=== PATIENT | male | born 1945 | race Caucasian/White ===

== ENCOUNTER 2016-11-05 10:01 | Outpatient (CLI) | payer MEDICARE | END 2016-11-05 10:02 | disposition home or self-care (01) | DX: J43.9 Emphysema, unspecified (principal); R91.8 Other nonspecific abnormal finding of lung field ==

== ENCOUNTER 2016-12-01 13:23 | Outpatient (CLI) | payer MEDICARE | END 2016-12-01 13:24 | disposition home or self-care (01) | DX: I49.9 Cardiac arrhythmia, unspecified (principal) ==

== ENCOUNTER 2016-12-01 14:01 | Inpatient (IN) | payer MEDICARE ==
[2016-12-01] MEDS ORDERED: METOPROLOL 5 MG/5 ML VIAL IVP STA ×2 (14:24→15:09)
[2016-12-01] MEDS ORDERED: ENOXAPARIN 80 MG/0.8 ML SYRINGE SUBQ STA (14:25)
[2016-12-01] MEDS ORDERED: METOPROLOL 5 MG/5 ML VIAL IVP ONE ×2 (14:25→15:09)
[2016-12-01] MEDS ORDERED: ENOXAPARIN 80 MG/0.8 ML SYRINGE SUBQ ONE (14:59)
[2016-12-01] MEDS ORDERED: ACETAMINOPHEN 325 MG TABLET PO PRN (16:08)
[2016-12-01] MEDS ORDERED: ONDANSETRON 4 MG/2 ML VIAL IVP PRN (16:08)
[2016-12-01] MEDS ORDERED: HYDROcod/ACETAM 5/325 MG TABLET PO PRN (16:08)
[2016-12-01] MEDS ORDERED: SODIUM CHLORIDE FLUSH 0.9% 10 ML SYRINGE IVP PRN (16:08)
[2016-12-01] MEDS ORDERED: IPRATROPIUM/ALBUTEROL 3 ML NEB INH PRN (17:11)
[2016-12-01] MEDS: diltiaZEM INJ 125 MG in DEXTROSE 5% 100 ML IV SCH (17:15)
[2016-12-01] MEDS: SODIUM CHLORIDE 0.9% 1,000 ML IV SCH (17:23)
[2016-12-01] MEDS ORDERED: FUROSEMIDE 40 MG/4 ML VIAL IVP SCH (21:12)
[2016-12-01] MEDS: SODIUM CHLORIDE FLUSH 0.9% 10 ML SYRINGE IVP SCH (21:40)
[2016-12-02] MEDS: SODIUM CHLORIDE 0.9% 1,000 ML IV SCH ×2 (03:15→13:15)
[2016-12-02] MEDS: diltiaZEM INJ 125 MG in DEXTROSE 5% 100 ML IV SCH (04:12)
[2016-12-02] MEDS: SODIUM CHLORIDE FLUSH 0.9% 10 ML SYRINGE IVP SCH ×2 (05:49→13:15)
[2016-12-02] MEDS ORDERED: ASPIRIN CHEW 81 MG TABLET PO SCH (09:00)
[2016-12-02] MEDS ORDERED: HEPARIN 5,000 UNIT/ML VIAL SUBQ SCH (09:00)
[2016-12-02] MEDS ORDERED: LISINOPRIL 5 MG TABLET PO SCH (09:00)
[2016-12-02] MEDS ORDERED: METOPROLOL TARTRATE 50 MG TABLET PO SCH (10:00)
[2016-12-02] MEDS ORDERED: SODIUM CHLORIDE INHALATION 3 ML NEB INH PRN (10:36)
[2016-12-02] MEDS ORDERED: LEVALBUTEROL 1.25 MG INH ONE (11:55)
[2016-12-02] MEDS ORDERED: IPRATROPIUM 0.2 MG/ML NEB INH ONE (11:55)
[2016-12-02] MEDS ORDERED: diltiaZEM CD 120 MG CAPSULE PO SCH (12:00)
[2016-12-02] MEDS: IPRATROPIUM 0.2 MG/ML NEB INH SCH ×2 (14:23→16:20)
[2016-12-02] MEDS: LEVALBUTEROL 1.25 MG INH SCH ×2 (14:23→16:20)
== END 2016-12-02 17:15 | disposition home or self-care (01) | DRG 309 ==
DX: I48.91 Unspecified atrial fibrillation (principal); N17.9 Acute kidney failure, unspecified; F17.200 Nicotine dependence, unspecified, uncomplicated; Z86.718 Personal history of other venous thrombosis and embolism; N18.4 Chronic kidney disease, stage 4 (severe); J44.9 Chronic obstructive pulmonary disease, unspecified; E87.5 Hyperkalemia; I51.7 Cardiomegaly; F32.9 Major depressive disorder, single episode, unspecified; Z72.0 Tobacco use; I49.9 Cardiac arrhythmia, unspecified

== ENCOUNTER 2016-12-30 10:48 | Outpatient (CLI) | payer MEDICARE | END 2016-12-30 10:49 | disposition home or self-care (01) | LOC: LAB.F 10:48 | PROVIDERS: ATTEND Nurse Practitioner Family | DX: I48.91 Unspecified atrial fibrillation (principal) | CPT/HCPCS: 36415; 85610 ==

== ENCOUNTER 2017-01-02 09:40 | Outpatient (CLI) | payer MEDICARE | END 2017-01-02 09:41 | disposition home or self-care (01) | LOC: LAB.F 09:40 | PROVIDERS: ATTEND Nurse Practitioner Family | DX: I48.91 Unspecified atrial fibrillation (principal) | CPT/HCPCS: 85610 ==

== ENCOUNTER 2017-01-05 12:02 | Outpatient (CLI) | payer MEDICARE | END 2017-01-05 23:59 | disposition home or self-care (01) | LOC: LAB.S 12:02 | PROVIDERS: ATTEND Nurse Practitioner Family | DX: I48.91 Unspecified atrial fibrillation (principal) | CPT/HCPCS: 85610 ==

== ENCOUNTER 2017-01-08 13:13 | Outpatient (CLI) | payer MEDICARE | END 2017-01-08 13:14 | disposition home or self-care (01) | LOC: LAB.F 13:13 | PROVIDERS: ATTEND Nurse Practitioner Family | DX: I48.91 Unspecified atrial fibrillation (principal) | CPT/HCPCS: 85610 ==

== ENCOUNTER 2017-01-12 14:14 | Outpatient (CLI) | payer MEDICARE | END 2017-01-12 23:59 | disposition home or self-care (01) | LOC: LAB.F 14:14 | PROVIDERS: ATTEND Nurse Practitioner Family | DX: I48.91 Unspecified atrial fibrillation (principal) | CPT/HCPCS: 85610 ==

== ENCOUNTER 2017-01-15 13:46 | Outpatient (CLI) | payer MEDICARE | END 2017-01-15 13:47 | disposition home or self-care (01) | LOC: LAB.F 13:46 | PROVIDERS: ATTEND Nurse Practitioner Family | DX: I48.91 Unspecified atrial fibrillation (principal) | CPT/HCPCS: 85610 ==

== ENCOUNTER 2017-01-15 18:13 | Emergency (ER) | payer MEDICARE ==
[2017-01-15] MEDS ORDERED: FUROSEMIDE 40 MG/4 ML VIAL IVP STA (18:29)
[2017-01-15] MEDS ORDERED: METOPROLOL 5 MG/5 ML VIAL IVP STA ×2 (18:29→19:00)
--- NOTE | 2017-01-15 18:35 | ED Physician Documentation ---
History of Present Illness - Stated complaint Stated Complaint: HEART ISSUES - Chief complaint Chief Complaint: Cardiac - History obtained from History obtained from: Patient, Family - Additonal information Additional information: This is a 71-year-old gentleman with history of COPD, chronic kidney disease, and relatively new diagnosis of atrial fibrillation since December 01. He is on anticoagulation. He was sent from the orifice for increasing pedal edema of about 2 weeks duration. Of note, maybe a month ago he stopped his metoprolol, he was taking 50 mg twice a day. When asked why he stopped, he blames his , and his blames him. Otherwise he had a recent COPD exacerbation and is on prednisone. He went to the office today for pedal edema and was referred here because he was in A. fib with RVR. It sounds like he's been in A. fib for the last month and a half. He has not seen a medical planner yet because a stress test was delayed because of previously supratherapeutic INR. His breathing is okay he says. He denies any chest pain. Review of Systems Ten Systems: 10 systems reviewed and negative Constitutional: denies: Fever, Chills Throat: denies: Dental pain / toothache, Sore throat Cardiac: reports: Pedal edema. denies: Chest pain / pressure, Palpitations, Calf pain Respiratory: denies: Dyspnea PD PAST MEDICAL HISTORY - Past Medical History Past Medical History: Yes Cardiovascular: Deep vein thrombosis Respiratory: COPD Psych: Depression - Past Surgical History Past Surgical History: Yes Ortho: Knee replacement - Present Medications Home Medications: Ambulatory Orders Medication Instructions Recorded Confirmed amLODIPine [Norvasc] 5 mg PO DAILY 08/05/13 01/15/17 Ipratropium [Atrovent] 0.5 mg INH QID #30 neb 12/02/16 Levalbuterol [Xopenex] 1.25 mg INH QID #30 neb 12/02/16 Metoprolol Tartrate [Lopressor] 75 mg PO BID 12/02/16 01/15/17 diltiaZEM CD [Cardizem Cd] 120 mg PO DAILY #30 capsule 12/02/16 01/15/17 FLUoxetine [PROzac] 20 mg DAILY 01/15/17 01/15/17 Furosemide [Lasix] 20 mg PO DAILY #5 tablet 01/15/17 Potassium Chloride 10 meq PO DAILY #5 tablet.er 01/15/17 Prednisone 20 mg DAILY 01/15/17 01/15/17 Warfarin [Coumadin] 5 mg DAILY 01/15/17 01/15/17 - Allergies Allergies/Adverse Reactions: Allergies Allergy/AdvReac Type Severity Reaction Status Date / Time No Known Drug Allergies Allergy Verified 12/01/16 14:07 - Social History Does the pt smoke?: Yes Smoking Status: Former smoker Does the pt drink ETOH?: No Does the pt have substance abuse?: No - Immunizations Immunizations are current?: Yes Immunizations: TDAP current <10years - POLST Patient has POLST: No PD ED PE NORMAL - Vitals Vital signs reviewed: Yes - General General: Alert and oriented X 3, No acute distress - HEENT HEENT: PERRL, EOMI - Neck Neck: Supple, no meningeal sign, No bony TTP - Cardiac Cardiac: Other (rapid, irregular) - Respiratory Respiratory: Other (wheezy but no rales) - Abdomen Abdomen: Non tender - Extremities Extremities: Other (moderate pitting pedal edema,symmetric) - Neuro Neuro: Alert and oriented X 3, Normal speech - Psych Psych: Normal mood, Normal affect Results - Vitals Vitals: Vital Signs - 24 hr 01/15/17 01/15/17 01/15/17 18:20 18:27 18:40 Temperature 36.7 C Heart Rate 124 H 119 H Respiratory 20 18 Rate Blood Pressure 121/75 116/77 Blood Pressure 123/76 [Left] Blood Pressure 121/75 [Right] O2 Saturation 99 96 01/15/17 01/15/17 18:59 19:16 Temperature Heart Rate 103 H 95 Respiratory 18 18 Rate Blood Pressure 118/77 108/83 H Blood Pressure [Left] Blood Pressure [Right] O2 Saturation 95 96 Oxygen O2 Source Room air - EKG (time done) 1821 Rate: Rate (enter#) (110) Rhythm: Atrial fibrillation [place]: Normal Ischemia: Non specific changes Computer interpretation: Agree with computer - Labs Labs: Laboratory Tests 01/15/17 01/15/17 01/15/17 18:30 18:30 18:30 WBC 10.8 RBC 3.46 L Hgb 11.3 L Hct 33.3 L MCV 96.4 H MCH 32.7 H MCHC 33.9 RDW 16.1 H Plt Count 213 MPV 7.5 Neut # 9.9 H Lymph # 0.5 L Door # 0.4 Eos # 0.0 Baso # 0.0 Absolute Nucleated RBC 0.00 Nucleated RBCs 0.0 PT 27.0 H INR 2.4 H Sodium 131 L Potassium 5.0 Chloride 94 L Carbon Dioxide 21 Anion Gap 16.0 H BUN 32 H Creatinine 1.6 H Estimated GFR (MDRD) 43 L Glucose 110 H Calcium 10.3 Magnesium 1.6 L Total Bilirubin 0.8 AST 31 ALT 31 Alkaline Phosphatase 152 H Troponin I B-Natriuretic Peptide Total Protein 7.4 Albumin 3.9 Globulin 3.5 Albumin/Globulin Ratio 1.1 Lipase 63 H 01/15/17 01/15/17 18:30 18:30 WBC RBC Hgb Hct MCV MCH MCHC RDW Plt Count MPV Neut # Lymph # Door # Eos # Baso # Absolute Nucleated RBC Nucleated RBCs PT INR Sodium Potassium Chloride Carbon Dioxide Anion Gap BUN Creatinine Estimated GFR (MDRD) Glucose Calcium Magnesium Total Bilirubin AST ALT Alkaline Phosphatase Troponin I < 0.04 B-Natriuretic Peptide 593 H Total Protein Albumin Globulin Albumin/Globulin Ratio Lipase - Rads (name of study) 2v chest Radiology: EMP read contemporaneously (Hyperinflation with prominent interstitial markings and small pleural effusions) PD MEDICAL DECISION MAKING - ED course ED course: 71-year-old gentleman with A. fib and RVR and some evidence of CHF, likely all related to medication noncompliance with his beta blockers. The administration of 2 doses of IV Lopressor and Lasix he remained well appearing, not in extremis and his heart rate was down to 90. They have plenty of metoprolol at home and will start taking it again as previously prescribed. Departure - Departure Disposition: Home, Self Care Clinical Impression: Atrial fibrillation with RVR, Adequate anticoagulation on anticoagulant therapy Congestive heart failure Qualifiers: Congestive heart failure type: unspecified congestive heart failure type Congestive heart failure chronicity: acute on chronic Qualified Code(s): I50.9 - Heart failure, unspecified Condition: Good Record reviewed to determine appropriate education?: Yes Instructions: Atrial Fibrillation Dc Prescriptions: Furosemide [Lasix] 20 mg PO DAILY #5 tablet Potassium Chloride 10 meq PO DAILY #5 tablet.er Comments: Restart your metoprolol at the previous dose. Continue warfarin at current dose. Follow up with your doctor early next week. Return if worse.
[2017-01-15] MEDS ORDERED: FUROSEMIDE 40 MG/4 ML VIAL ONE (18:37)
[2017-01-15] MEDS ORDERED: METOPROLOL 5 MG/5 ML VIAL IVP ONE ×2 (18:37→19:04)
[2017-01-15 18:46] LABS: BASOPHILS % (AUTO) 0.2 %; HCT - HEMATOCRIT 33.3 % (42.0-52.0); HGB - HEMOGLOBIN 11.3 g/dL (14.0-18.0); LYMPHOCYTES # (AUTO) 0.5 10^3/uL (1.5-3.5); LYMPHOCYTES % (AUTO) 4.7 %; MEAN CORPUSCULAR HEMOGLOBIN 32.7 pg (27.0-31.0); MEAN CORPUSCULAR HGB CONC 33.9 g/dL (32.0-36.0); MEAN CORPUSCULAR VOLUME 96.4 fL (80.0-94.0); MEAN PLATELET VOLUME 7.5 fL (7.4-11.4); MONOCYTES # (AUTO) 0.4 10^3/uL (0.0-1.0); MONOCYTES % (AUTO) 3.7 %; NEUTROPHILS # (AUTO) 9.9 10^3/uL (1.5-6.6); NEUTROPHILS % (AUTO) 91.4 %; RED BLOOD COUNT 3.46 10^6/uL (4.70-6.10); RED CELL DISTRIBUTION WIDTH 16.1 % (12.0-15.0); UNCORRECTED WHITE BLOOD COUNT 10.8 x10^3/uL; WHITE BLOOD COUNT 10.8 x10^3/uL (4.8-10.8)
[2017-01-15 18:53] LABS: INR 2.4 (0.8-1.2)
[2017-01-15 18:59] LABS: ALBUMIN/GLOBULIN RATIO 1.1 (1.0-2.2); BILIRUBIN,TOTAL 0.8 mg/dL (0.2-1.0); CALCIUM 10.3 mg/dL (8.5-10.3); CREATININE 1.6 mg/dL (0.6-1.2); MAGNESIUM 1.6 mg/dL (1.7-2.8); TOTAL PROTEIN 7.4 g/dL (6.7-8.2)
[2017-01-15 19:17] VITALS: BP 108/83
--- NOTE | 2017-01-15 19:26 | XRAY Preliminary Report ---
Exam: XR Chest 2 View PA/LAT IMPRESSION: Hyperinflation with prominent interstitial markings in the lower lungs, likely chronic, w ith small pleural effusions. [facility] SITE ID: [id number]
--- NOTE | 2017-01-15 19:28 | XRAY Report ---
EXAM: CHEST RADIOGRAPHY EXAM DATE: 01/15/2017 06:53 PM. CLINICAL HISTORY: CHF. COMPARISON: 12/01/2016. TECHNIQUE: 2 views. FINDINGS: Lungs/Pleura: Hyperinflated lungs. Small bilateral pleural effusions with increased interstitial jaciel ings in the lower lungs. No consolidation. No pneumothorax. Mediastinum: Heart and mediastinal contours are unremarkable. Other: No compression fractures. IMPRESSION: Hyperinflation with prominent interstitial markings in the lower lungs, likely chronic, w ith small pleural effusions. [facility] Referring Provider Line: [phone] SITE ID: [id number]
== END 2017-01-15 19:47 | disposition home or self-care (01) ==
LOC: ED 18:13
DX: I48.91 Unspecified atrial fibrillation (principal); Z79.01 Long term (current) use of anticoagulants; I50.9 Heart failure, unspecified; N18.9 Chronic kidney disease, unspecified; Z86.718 Personal history of other venous thrombosis and embolism; Z87.891 Personal history of nicotine dependence
CPT/HCPCS: 36415; 71020; 80053; 83690; 83735; 83880; 84484; 85025; 85610; 93005; 93010; 96374; 96375; 99284; 99285

== ENCOUNTER 2017-01-20 13:26 | Outpatient (CLI) | payer MEDICARE | END 2017-01-20 13:27 | disposition home or self-care (01) | LOC: LAB.F 13:26 | PROVIDERS: ATTEND Nurse Practitioner Family | DX: I48.91 Unspecified atrial fibrillation (principal) | CPT/HCPCS: 85610 ==

== ENCOUNTER 2017-01-23 13:13 | Outpatient (CLI) | payer MEDICARE | END 2017-01-23 13:14 | disposition home or self-care (01) | LOC: LAB.F 13:13 | PROVIDERS: ATTEND Nurse Practitioner Family | DX: I48.91 Unspecified atrial fibrillation (principal) | CPT/HCPCS: 85610 ==

== ENCOUNTER 2017-02-02 14:17 | Outpatient (CLI) | payer MEDICARE | END 2017-02-02 14:18 | disposition home or self-care (01) | LOC: LAB.S 14:17 | PROVIDERS: ATTEND Nurse Practitioner Family | DX: I48.91 Unspecified atrial fibrillation (principal) | CPT/HCPCS: 85610 ==

== ENCOUNTER 2017-02-09 08:00 | Outpatient (CLI) | payer MEDICARE | END 2017-02-09 08:01 | disposition home or self-care (01) | DX: I48.91 Unspecified atrial fibrillation (principal) ==

== ENCOUNTER 2017-02-13 13:55 | Outpatient (CLI) | payer MEDICARE | END 2017-02-13 13:56 | disposition home or self-care (01) | LOC: LAB.F 13:55 | PROVIDERS: ATTEND Nurse Practitioner Family | DX: I48.91 Unspecified atrial fibrillation (principal) | CPT/HCPCS: 85610 ==

== ENCOUNTER 2017-02-19 11:09 | Outpatient (CLI) | payer MEDICARE | END 2017-02-19 11:10 | disposition home or self-care (01) | LOC: LAB.F 11:09 | PROVIDERS: ATTEND Family Medicine | DX: I48.91 Unspecified atrial fibrillation (principal) | CPT/HCPCS: 85610; 93005 ==

== ENCOUNTER 2017-03-19 13:34 | Outpatient (CLI) | payer MEDICARE ==
[2017-03-19 14:02] LABS: CALCIUM 9.7 mg/dL (8.5-10.3); CREATININE 1.7 mg/dL (0.6-1.2); POTASSIUM 5.1 mmol/L (3.5-5.0)
== END 2017-03-19 13:35 | disposition home or self-care (01) ==
LOC: LAB 13:34
PROVIDERS: ATTEND Internal Medicine Cardiovascular Disease
DX: I48.91 Unspecified atrial fibrillation (principal); I50.9 Heart failure, unspecified; N18.9 Chronic kidney disease, unspecified; I12.9 Hypertensive chronic kidney disease with stage 1 through stage 4 chronic kidney disease, or unspecified chronic kidney disease
CPT/HCPCS: 36415; 80048

== ENCOUNTER 2017-04-08 08:09 | Outpatient (CLI) | payer MEDICARE | END 2017-04-08 08:10 | disposition home or self-care (01) | LOC: LAB.F 08:09 | PROVIDERS: ATTEND Nurse Practitioner Family | DX: I48.91 Unspecified atrial fibrillation (principal) | CPT/HCPCS: 85610 ==

== ENCOUNTER 2017-04-22 10:55 | Outpatient (CLI) | payer MEDICARE | END 2017-04-22 10:56 | disposition home or self-care (01) | LOC: LAB.F 10:55 | PROVIDERS: ATTEND Internal Medicine | DX: I48.2 Chronic atrial fibrillation (principal) | CPT/HCPCS: 85610 ==

== ENCOUNTER 2017-04-24 14:06 | Outpatient (CLI) | payer MEDICARE ==
[2017-04-24 14:50] LABS: CALCIUM 8.9 mg/dL (8.5-10.3); CREATININE 1.3 mg/dL (0.6-1.2); PHOSPHORUS 2.9 mg/dL (2.5-4.6); POTASSIUM 4.2 mmol/L (3.5-5.0)
== END 2017-04-24 14:07 | disposition home or self-care (01) ==
LOC: LAB.F 14:06
PROVIDERS: ATTEND Internal Medicine Cardiovascular Disease
DX: I50.41 Acute combined systolic (congestive) and diastolic (congestive) heart failure (principal); I48.2 Chronic atrial fibrillation
CPT/HCPCS: 36415; 80069; 85610

== ENCOUNTER 2017-05-08 09:33 | Outpatient (CLI) | payer MEDICARE | END 2017-05-08 09:34 | disposition home or self-care (01) | LOC: LAB.F 09:33 | PROVIDERS: ATTEND Internal Medicine | DX: I48.2 Chronic atrial fibrillation (principal) | CPT/HCPCS: 85610 ==

== ENCOUNTER 2017-05-29 10:40 | Outpatient (CLI) | payer MEDICARE | END 2017-05-29 10:41 | disposition home or self-care (01) | LOC: LAB.F 10:40 | PROVIDERS: ATTEND Nurse Practitioner Family | DX: I48.2 Chronic atrial fibrillation (principal) | CPT/HCPCS: 85610 ==

== ENCOUNTER 2017-06-17 14:06 | Outpatient (CLI) | payer MEDICARE | END 2017-06-17 14:07 | disposition home or self-care (01) | LOC: LAB.F 14:06 | PROVIDERS: ATTEND Nurse Practitioner Family | DX: I48.2 Chronic atrial fibrillation (principal) | CPT/HCPCS: 85610 ==

== ENCOUNTER 2017-07-06 13:15 | Outpatient (CLI) | payer MEDICARE | END 2017-07-06 13:16 | disposition home or self-care (01) | LOC: LAB.F 13:15 | PROVIDERS: ATTEND Nurse Practitioner Family | DX: I48.2 Chronic atrial fibrillation (principal) | CPT/HCPCS: 85610 ==

== ENCOUNTER 2017-09-04 13:10 | Outpatient (CLI) | payer MEDICARE | END 2017-09-04 13:11 | disposition home or self-care (01) | LOC: LAB.F 13:10 | PROVIDERS: ATTEND Nurse Practitioner Family | DX: I48.2 Chronic atrial fibrillation (principal) | CPT/HCPCS: 85610 ==

== ENCOUNTER 2017-10-02 13:37 | Outpatient (CLI) | payer MEDICARE | END 2017-10-02 13:38 | disposition home or self-care (01) | LOC: LAB.F 13:37 | PROVIDERS: ATTEND Nurse Practitioner Family | DX: I48.2 Chronic atrial fibrillation (principal) | CPT/HCPCS: 85610 ==

== ENCOUNTER 2017-10-16 08:00 | Outpatient (CLI) | payer MEDICARE | END 2017-10-16 08:01 | disposition home or self-care (01) | LOC: LAB.F 08:00 | PROVIDERS: ATTEND Nurse Practitioner Family | DX: I48.2 Chronic atrial fibrillation (principal) | CPT/HCPCS: 85610 ==

== ENCOUNTER → 2017-10-16 | Outpatient (CLI) | payer MEDICARE | LOC: LAB.F 08:00 | PROVIDERS: ATTEND Nurse Practitioner Family | DX: I48.2 Chronic atrial fibrillation (principal) ==

== ENCOUNTER 2017-10-28 13:08 | Outpatient (CLI) | payer MEDICARE | END 2017-10-28 13:09 | disposition home or self-care (01) | LOC: LAB.F 13:08 | PROVIDERS: ATTEND Nurse Practitioner Family | DX: I48.2 Chronic atrial fibrillation (principal) | CPT/HCPCS: 85610 ==

== ENCOUNTER 2017-10-30 10:11 | Outpatient (CLI) | payer MEDICARE | END 2017-10-30 10:12 | disposition home or self-care (01) | LOC: LAB.F 10:11 | PROVIDERS: ATTEND Nurse Practitioner Family | DX: I48.2 Chronic atrial fibrillation (principal) | CPT/HCPCS: 85610 ==

== ENCOUNTER 2017-11-03 08:00 | Outpatient (CLI) | payer MEDICARE | END 2017-11-03 08:01 | disposition home or self-care (01) | LOC: LAB.F 08:00 | PROVIDERS: ATTEND Nurse Practitioner Family | DX: I48.2 Chronic atrial fibrillation (principal) | CPT/HCPCS: 85610 ==

== ENCOUNTER 2017-11-11 13:07 | Outpatient (CLI) | payer MEDICARE | END 2017-11-11 13:08 | disposition home or self-care (01) | LOC: LAB.F 13:07 | PROVIDERS: ATTEND Nurse Practitioner Family | DX: I48.2 Chronic atrial fibrillation (principal) | CPT/HCPCS: 85610 ==

== ENCOUNTER 2017-11-19 13:05 | Outpatient (CLI) | payer MEDICARE | END 2017-11-19 13:06 | disposition home or self-care (01) | LOC: LAB.F 13:05 | PROVIDERS: ATTEND Nurse Practitioner Family | DX: I48.2 Chronic atrial fibrillation (principal) | CPT/HCPCS: 85610 ==

== ENCOUNTER 2017-11-30 13:04 | Outpatient (CLI) | payer MEDICARE | END 2017-11-30 13:05 | disposition home or self-care (01) | LOC: LAB.F 13:04 | PROVIDERS: ATTEND Nurse Practitioner Family | DX: I48.2 Chronic atrial fibrillation (principal) | CPT/HCPCS: 85610 ==

== ENCOUNTER 2017-12-08 13:16 | Outpatient (CLI) | payer MEDICARE | END 2017-12-08 13:17 | disposition home or self-care (01) | LOC: LAB.F 13:16 | PROVIDERS: ATTEND Nurse Practitioner Family | DX: I48.2 Chronic atrial fibrillation (principal) | CPT/HCPCS: 85610 ==

== ENCOUNTER 2017-12-22 13:10 | Outpatient (CLI) | payer MEDICARE | END 2017-12-22 13:11 | disposition home or self-care (01) | LOC: LAB.F 13:10 | PROVIDERS: ATTEND Nurse Practitioner Family | DX: I48.2 Chronic atrial fibrillation (principal) | CPT/HCPCS: 85610 ==

== ENCOUNTER 2018-01-06 13:06 | Outpatient (CLI) | payer MEDICARE | END 2018-01-06 13:07 | disposition home or self-care (01) | LOC: LAB.F 13:06 | PROVIDERS: ATTEND Nurse Practitioner Family | DX: I48.2 Chronic atrial fibrillation (principal) | CPT/HCPCS: 85610 ==

== ENCOUNTER 2018-01-11 19:37 | Outpatient (CLI) | payer MEDICARE | END 2018-01-11 19:38 | disposition critical access hospital (66) | LOC: EMS 19:37 | PROVIDERS: ATTEND Surgery | DX: R55 Syncope and collapse (principal); Z72.89 Other problems related to lifestyle | CPT/HCPCS: A0425; A0429 ==

== ENCOUNTER 2018-01-11 20:12 | Emergency (ER) | payer MEDICARE ==
[2018-01-11] MEDS ORDERED: SODIUM CHLORIDE 0.9% 1,000 ML IV ONE ×2 (20:25→22:51)
--- NOTE | 2018-01-11 23:22 | XRAY Report ---
EXAM: CHEST RADIOGRAPHY EXAM DATE: 01/11/2018 11:07 PM. CLINICAL HISTORY: Left chest pain. Syncopal episode. COMPARISON: 01/15/2017. TECHNIQUE: 2 views. FINDINGS: Lungs/Pleura: Stable hyperinflation with blunted costophrenic angles and mild basilar scarring, other frank no focal opacities evident. No pneumothorax. Mediastinum: Heart and mediastinal contours are unremarkable. Other: No compression fractures identified. IMPRESSION: No acute findings. Stable hyperinflation with blunted costophrenic angles and mild bibasi lar scarring. [facility] Referring Provider Line: [phone] SITE ID: [id number]
[2018-01-11 23:24] LABS: BASOPHILS # (AUTO) 0.1 10^3/uL (0.0-0.1); BASOPHILS % (AUTO) 1.1 %; EOSINOPHILS # (AUTO) 0.3 10^3/uL (0.0-0.7); EOSINOPHILS % (AUTO) 3.3 %; HGB - HEMOGLOBIN 13.2 g/dL (14.0-18.0); LYMPHOCYTES # (AUTO) 2.6 10^3/uL (1.5-3.5); LYMPHOCYTES % (AUTO) 31.3 %; MEAN CORPUSCULAR HEMOGLOBIN 37.2 pg (27.0-31.0); MEAN CORPUSCULAR HGB CONC 33.5 g/dL (32.0-36.0); MEAN CORPUSCULAR VOLUME 111.2 fL (80.0-94.0); MEAN PLATELET VOLUME 7.1 fL (7.4-11.4); MONOCYTES # (AUTO) 0.6 10^3/uL (0.0-1.0); MONOCYTES % (AUTO) 7.8 %; NEUTROPHILS # (AUTO) 4.6 10^3/uL (1.5-6.6); NEUTROPHILS % (AUTO) 56.5 %; PLT - PLATELET COUNT 231 10^3/uL (130-450); RED BLOOD COUNT 3.55 10^6/uL (4.70-6.10); RED CELL DISTRIBUTION WIDTH 15.1 % (12.0-15.0); WHITE BLOOD COUNT 8.2 x10^3/uL (4.8-10.8)
[2018-01-11 23:35] LABS: ALBUMIN 3.6 g/dL (3.2-5.5); BILIRUBIN,TOTAL 0.6 mg/dL (0.2-1.0); CALCIUM 8.3 mg/dL (8.5-10.3); CREATININE 1.4 mg/dL (0.6-1.2); INR 2.6 (0.8-1.2); MAGNESIUM 1.7 mg/dL (1.7-2.8); PT - PROTHROMBIN TIME 28.3 secs (9.9-12.6); TOTAL PROTEIN 7.3 g/dL (6.7-8.2)
[2018-01-11 23:41] LABS: PLATELET ESTIMATE, MANUAL NORMAL (130-450,000) (NORMAL); PLATELET MORPHOLOGY NORMAL APPEARANCE (NORMAL); RBC MORPHOLOGY (MULTIPLE) NORMAL APPEARANCE (NORMAL)
--- NOTE | 2018-01-11 23:48 | CT Preliminary Report ---
Exam: CT HEAD W/O IMPRESSION: 1. No acute intracranial abnormality. No significant change compared to 08/05/2013. 2. Age-related generalized cerebral volume loss and chronic microvascular change. 3. No intracranial mass lesion, mass effect, or hydrocephalus. [facility] SITE ID: [id number]
--- NOTE | 2018-01-11 23:48 | CT Report ---
EXAM: CT HEAD EXAM DATE: 01/11/2018 11:39 PM. CLINICAL HISTORY: Fall on Coumadin. COMPARISON: CT head 08/05/2013. TECHNIQUE: Multiaxial CT images were obtained from the foramen magnum to the vertex. Reformats: Coron al. IV contrast: None. In accordance with CT protocol optimization, one or more of the following dose reduction techniques w ere utilized for this exam: automated exposure control, adjustment of mA and/or KV based on patient s ize, or use of iterative reconstructive technique. FINDINGS: Parenchyma: No intraparenchymal hemorrhage. No evidence of mass, midline shift, or CT findings of inf arction. [place]-white differentiation is distinct. Mild to moderate chronic microvascular change in the deep white matter appears stable. Extraaxial Spaces: There is mild age-related generalized cerebral volume loss. This is stable. No sub dural or epidural collections identified. Ventricles: Normal in size and position. Sinuses and Orbits: Imaged paranasal sinuses, orbits, and mastoids show no significant abnormality. Bones: No evidence of fracture or calvarial defect. Other: None. IMPRESSION: 1. No acute intracranial abnormality. No significant change compared to 08/05/2013. 2. Age-related generalized cerebral volume loss and chronic microvascular change. 3. No intracranial mass lesion, mass effect, or hydrocephalus. [facility] Referring Provider Line: [phone] SITE ID: [id number]
--- NOTE | 2018-01-12 00:16 | ED Physician Documentation ---
PD HPI SYNCOPE - Stated complaint Stated Complaint: SYNCOPE, HBD - Chief complaint Chief Complaint: General - History obtained from History obtained from: Patient, Family, EMS - History of Present Illness Witnessed: Unwitnessed ( heard a thud from next room and went in to see patient collapsed on floor near bed. He did not have apparent breathing. She called 911 and they had her start chest compressions. He awoke within 20-30 seconds and told her to stop, that she was hurting him. states that he had been drinking heavily, as he regularly does. Patient says he recalls getting up to go to the bathroom and then awakened on the floor. He denies pains now.) Timing - onset: How many minutes ago (30), Today Duration: Seconds Preceding symptoms: Light headed. No: Chest pain Associated symptoms: No: Headache, Chest pain, Abdominal pain Contributing factors: Decreased PO intake, Just stood up. No: Recent med change Injury occurred: Fell. No: Head injury, Neck injury Treatment [employer]: Fluids Similar symptoms before: Has not had sx before Review of Systems Constitutional: denies: Fever Nose: denies: Rhinorrhea / runny nose, Congestion Throat: denies: Sore throat Cardiac: denies: Chest pain / pressure, Palpitations Respiratory: denies: Cough GI: denies: Abdominal Pain, Nausea, Vomiting, Diarrhea Neurologic: denies: Focal weakness, Numbness, Headache Psychiatric: denies: Depressed, Suicidal PD PAST MEDICAL HISTORY - Past Medical History Cardiovascular: Deep vein thrombosis Respiratory: COPD Psych: Depression - Past Surgical History Past Surgical History: Yes Ortho: Knee replacement - Present Medications Home Medications: Ambulatory Orders Medication Instructions Recorded Confirmed amLODIPine [Norvasc] 5 mg PO DAILY 08/05/13 01/15/17 Ipratropium [Atrovent] 0.5 mg INH QID #30 neb 12/02/16 Levalbuterol [Xopenex] 1.25 mg INH QID #30 neb 12/02/16 Metoprolol Tartrate [Lopressor] 75 mg PO BID 12/02/16 01/15/17 diltiaZEM CD [Cardizem Cd] 120 mg PO DAILY #30 capsule 12/02/16 01/15/17 FLUoxetine [PROzac] 20 mg DAILY 01/15/17 01/15/17 Furosemide [Lasix] 20 mg PO DAILY #5 tablet 01/15/17 Potassium Chloride 10 meq PO DAILY #5 tablet.er 01/15/17 Warfarin [Coumadin] 5 mg DAILY 01/15/17 01/15/17 predniSONE [Prednisone] 20 mg DAILY 01/15/17 01/15/17 - Allergies Allergies/Adverse Reactions: Allergies Allergy/AdvReac Type Severity Reaction Status Date / Time No Known Drug Allergies Allergy Verified 01/11/18 20:18 - Living Situation Living Situation: reports: With spouse/s.o. Living Arrangement: reports: At home - Social History Does the pt smoke?: Yes Smoking Status: Current every day smoker Does the pt drink ETOH?: No Does the pt have substance abuse?: No - Family History Family history: denies: CAD, Sudden - Immunizations Immunizations are current?: Yes Immunizations: TDAP current <10years - POLST Patient has POLST: No PD ED PE NORMAL - Vitals Vital signs reviewed: Yes - General General: Alert and oriented X 3, Well developed/nourished, Other (animated and has smell of alcohol on breath. ) - HEENT HEENT: Atraumatic, Pharynx benign - Neck Neck: Supple, no meningeal sign, No adenopathy - Cardiac Cardiac: RRR, No murmur - Respiratory Respiratory: Clear bilaterally, Other (no chestwall tenderness) - Abdomen Abdomen: Soft, Non tender - Male Male : Deferred - Rectal Rectal: Deferred - Back Back: No CVA TTP - Derm Derm: Normal color, Warm and dry - Extremities Extremities: No deformity, No tenderness to palpate, Normal ROM s pain, No edema , No calf tenderness / cord - Neuro Neuro: Alert and oriented X 3, painter tumbling barrel 2-12 intact, No motor deficit, No sensory deficit, Normal speech Eye Opening: Spontaneous Motor: Obeys Commands Verbal: Oriented GCS Score: 15 - Psych Psych: Normal mood Results - Vitals Vitals: Vital Signs - 24 hr 01/11/18 01/11/18 01/11/18 20:15 21:42 22:26 Temperature 36.5 C Heart Rate 68 78 62 Respiratory 18 16 16 Rate Blood Pressure 113/75 103/75 93/81 H O2 Saturation 95 93 92 01/12/18 00:23 Temperature Heart Rate 68 Respiratory 16 Rate Blood Pressure 116/64 O2 Saturation 95 Oxygen O2 Source Room air - EKG (time done) 23:18 Rate: Rate (enter#) (56) Rhythm: Sinus bradycardia [place]: Normal Intervals: Normal [place] QRS: Normal Ischemia: Normal ST segments. No: ST elevation c/w ischemia, ST depression Compare to prior EKG: Old EKG unavailable - Labs Labs: Laboratory Tests 01/11/18 01/11/18 01/11/18 23:12 23:12 23:12 WBC 8.2 RBC 3.55 L Hgb 13.2 L Hct 39.5 L MCV 111.2 H MCH 37.2 H MCHC 33.5 RDW 15.1 H Plt Count 231 MPV 7.1 L Neut # (Auto) 4.6 Lymph # (Auto) 2.6 [place] # (Auto) 0.6 Eos # (Auto) 0.3 Baso # (Auto) 0.1 Absolute Nucleated RBC 0.01 Nucleated RBC % 0.1 Manual Slide Review Indicated Platelet Estimate NORMAL (130-450,000) Platelet Morphology NORMAL APPEARANCE RBC Morph Micro Appear NORMAL APPEARANCE PT 28.3 H INR 2.6 H Sodium 133 L Potassium 3.6 Chloride 96 L Carbon Dioxide 27 Anion Gap 10.0 BUN 16 Creatinine 1.4 H Estimated GFR (MDRD) 50 L Glucose 100 Calcium 8.3 L Magnesium 1.7 Total Bilirubin 0.6 AST 27 ALT 16 Alkaline Phosphatase 148 H Total Protein 7.3 Albumin 3.6 Globulin 3.7 Albumin/Globulin Ratio 1.0 Lipase 36 Ethyl Alcohol 254.5 - Rads (name of study) chest xray Radiology: Prelim report reviewed (normal) head CT Radiology: Prelim report reviewed (no ICH; normal study) PD MEDICAL DECISION MAKING - ED course Complexity details: reviewed results (head CT due to fall on Coumadin - normal. Chest xray s/p brief CPR on his chest by . ), re-evaluated patient ( discussed need for alcohol cessation for him and to benefit his family. ), considered differential (sounds like intoxication and underhydration with postural syncope. He is alert now, though seems still intoxicated. No abnormal findings. ), d/w patient, d/w family - Sepsis Event Vital Signs: Vital Signs - 24 hr 01/11/18 01/11/18 01/11/18 20:15 21:42 22:26 Temperature 36.5 C Heart Rate 68 78 62 Respiratory 18 16 16 Rate Blood Pressure 113/75 103/75 93/81 H O2 Saturation 95 93 92 01/12/18 00:23 Temperature Heart Rate 68 Respiratory 16 Rate Blood Pressure 116/64 O2 Saturation 95 Oxygen O2 Source Room air Departure - Departure Disposition: 01 Home, Self Care Clinical Impression: Postural syncope, Dehydration Alcohol intoxication Qualifiers: Complication of substance-induced condition: uncomplicated Qualified Code(s): F10.920 - Alcohol use, unspecified with intoxication, uncomplicated Condition: Stable Record reviewed to determine appropriate education?: Yes Instructions: ED Dehydration, ED Alcohol Intoxication Follow-Up: Lexi Mar MD [Primary Care Provider] - Comments: This is a reminder in case you do not remember later that you promised me and your family that you would quit drinking. You scared your family very much tonight. Quit drinking alcohol. Drink regular fluids and eat regularly. Continue usual medications. Right now based on your CT scan, x-ray, ECG, and blood tests, I do not see a more serious cause of you having passed out nor injury from it. Presume your were under-hydrated and your blood pressure dropped transiently as you stood up, combined with the alcohol effect, caused you to pass out. Recheck if repeated episodes or feeling of lightheadedness, etc. See your PMD, go to AA meetings, seek alcohol treatment programs. Listen to your family. Discharge Date/Time: 01/12/18 00:23
[2018-01-12 00:24] VITALS: BP 116/64
== END 2018-01-12 00:23 | disposition home or self-care (01) ==
LOC: EDUNIT# → ED 20:12
DX: R55 Syncope and collapse (principal); E86.0 Dehydration; F10.920 Alcohol use, unspecified with intoxication, uncomplicated; I44.4 Left anterior fascicular block; F17.200 Nicotine dependence, unspecified, uncomplicated; Z86.718 Personal history of other venous thrombosis and embolism; Z96.659 Presence of unspecified artificial knee joint; Z79.01 Long term (current) use of anticoagulants
CPT/HCPCS: 36415; 70450; 71046; 80053; 83690; 83735; 85025; 85610; 93005; 96360; 96361; 99283; 99284; G0480; 80320

== ENCOUNTER 2018-01-28 12:59 | Outpatient (CLI) | payer MEDICARE | END 2018-01-28 13:00 | disposition home or self-care (01) | LOC: LAB.F 12:59 | PROVIDERS: ATTEND Nurse Practitioner Family | DX: I48.2 Chronic atrial fibrillation (principal) | CPT/HCPCS: 85610 ==

== ENCOUNTER 2018-02-25 13:02 | Outpatient (CLI) | payer MEDICARE | END 2018-02-25 13:03 | disposition home or self-care (01) | LOC: LAB.F 13:02 | PROVIDERS: ATTEND Nurse Practitioner Family | DX: I48.2 Chronic atrial fibrillation (principal) | CPT/HCPCS: 85610 ==

== ENCOUNTER 2018-03-26 14:32 | Outpatient (CLI) | payer MEDICARE | END 2018-03-26 14:33 | disposition home or self-care (01) | LOC: LAB.F 14:32 | PROVIDERS: ATTEND Nurse Practitioner Family | DX: I48.2 Chronic atrial fibrillation (principal) | CPT/HCPCS: 85610 ==

== ENCOUNTER 2018-04-22 13:05 | Outpatient (CLI) | payer MEDICARE | END 2018-04-22 13:06 | disposition home or self-care (01) | LOC: LAB.F 13:05 | PROVIDERS: ATTEND Nurse Practitioner Family | DX: I48.2 Chronic atrial fibrillation (principal) | CPT/HCPCS: 85610 ==

== ENCOUNTER 2018-05-20 13:09 | Outpatient (CLI) | payer MEDICARE | END 2018-05-20 13:10 | disposition home or self-care (01) | LOC: LAB.F 13:09 | PROVIDERS: ATTEND Nurse Practitioner Family | DX: I48.2 Chronic atrial fibrillation (principal) | CPT/HCPCS: 85610 ==

== ENCOUNTER 2018-06-03 12:58 | Outpatient (CLI) | payer MEDICARE | END 2018-06-03 12:59 | disposition home or self-care (01) | LOC: LAB.F 12:58 | PROVIDERS: ATTEND Nurse Practitioner Family | DX: I48.2 Chronic atrial fibrillation (principal) | CPT/HCPCS: 85610 ==

== ENCOUNTER 2018-06-17 13:04 | Outpatient (CLI) | payer MEDICARE ==
[2018-06-17 18:51] LABS: INR 1.9 (0.8-1.2); PT - PROTHROMBIN TIME 21.6 secs (9.9-12.6)
== END 2018-06-17 13:05 | disposition home or self-care (01) ==
LOC: LAB.F 13:04
PROVIDERS: ATTEND Nurse Practitioner Family
DX: I48.2 Chronic atrial fibrillation (principal)
CPT/HCPCS: 36415; 85610

== ENCOUNTER 2018-07-01 12:59 | Outpatient (CLI) | payer MEDICARE | END 2018-07-01 13:00 | disposition home or self-care (01) | LOC: LAB.F 12:59 | PROVIDERS: ATTEND Nurse Practitioner Family | DX: I48.2 Chronic atrial fibrillation (principal) | CPT/HCPCS: 85610 ==

== ENCOUNTER 2018-08-27 12:49 | Outpatient (CLI) | payer MEDICARE ==
[2018-08-27 19:29] LABS: INR > 10.0 (0.8-1.2); PT - PROTHROMBIN TIME > 120.0 secs (9.9-12.6)
== END 2018-08-27 12:50 | disposition home or self-care (01) ==
LOC: LAB.F 12:49
PROVIDERS: ATTEND Nurse Practitioner Family
DX: I48.2 Chronic atrial fibrillation (principal)
CPT/HCPCS: 36415; 85610

== ENCOUNTER 2018-08-30 11:53 | Outpatient (CLI) | payer MEDICARE | END 2018-08-30 11:54 | disposition short-term general hospital (02) | LOC: EMS 11:53 | PROVIDERS: ATTEND Surgery | DX: R06.00 Dyspnea, unspecified (principal); Z99.81 Dependence on supplemental oxygen | CPT/HCPCS: A0170; A0425; A0427 ==

== ENCOUNTER 2018-09-03 13:40 | Outpatient (CLI) | payer MEDICARE | END 2018-09-03 13:41 | disposition home or self-care (01) | LOC: LAB.F 13:40 | PROVIDERS: ATTEND Nurse Practitioner Family | DX: I48.2 Chronic atrial fibrillation (principal) | CPT/HCPCS: 85610 ==

== ENCOUNTER 2018-09-04 20:44 | Outpatient (CLI) | payer MEDICARE | END 2018-09-04 20:45 | disposition critical access hospital (66) | LOC: EMS 20:44 | PROVIDERS: ATTEND Surgery | DX: R55 Syncope and collapse (principal); W20.8XXA Other cause of strike by thrown, projected or falling object, initial encounter; Y92.003 Bedroom of unspecified non-institutional (private) residence as the place of occurrence of the external cause | CPT/HCPCS: A0425; A0427 ==

== ENCOUNTER 2018-09-24 12:44 | Outpatient (CLI) | payer MEDICARE | END 2018-09-24 12:45 | disposition home or self-care (01) | LOC: LAB.F 12:44 | PROVIDERS: ATTEND Nurse Practitioner Family | DX: I48.2 Chronic atrial fibrillation (principal) | CPT/HCPCS: 85610 ==

== ENCOUNTER 2019-03-01 11:30 | Outpatient (CLI) | payer MEDICARE ==
--- NOTE | 2019-03-02 10:34 | CT Report ---
Reason: COPD,SERVERE,CURRENT SMOKED Procedure Date: 03/01/2019 Accession Number: [id number] / [id number] Procedure: CT - Low Dose Lung Cancer Screen CPT Code: FULL RESULT: EXAM CT LUNG SCREEN EXAM DATE: 03/01/2019 12:16 PM. HISTORY: 73-year-old patient with [id number] smoking history. Currently smoking: Yes. Severe COPD. COMPARISON: CHEST W/O 09/05/2018 6:03 PM. TECHNIQUE: CT examination of the entire thorax without contrast was performed using low-dose technique. Thin section coronal, axial, sagittal and MIP axial images were obtained. In accordance with CT protocol optimization, one or more of the following dose reduction techniques were utilized for this exam: automated exposure control, adjustment of mA and/or KV based on patient size, or use of iterative reconstructive technique. FINDINGS: Nodules: Right upper lobe: 2 mm nodule image 30 series 4, 5 mm nodule image 33, 2 mm nodule image 35, 3 mm nodule image 47, 2 mm nodule image 65. Right middle lobe: 2 mm nodule image 128, 2 mm nodule image 138. Right lower lobe: None. Left upper lobe: 3 mm nodule image 34, 3 mm nodule image 66, 2 mm nodule image 80, 3.6 x 1.4 x 2.4 cm Subsolid area containing 2 spiculated nodules measuring 1.5 x 1.1 cm and 0.7 x 1.3 cm respectively. See coronal image 63 of series 6 as well as axial image 82 series 4 and axial image 85 series 4 for characterization. Left lower lobe: None. Emphysema: Moderate to severe. Pleura: There are focal areas of pleural thickening at both lung bases as well as posterior along the left upper lobe best seen on image 47 series 4. Aorta: Moderately calcified. Mediastinum: Prominent lymph nodes are seen throughout the mediastinum, borderline lymphadenopathy with individual nodes not meeting size criteria. Coronary calcifications: Moderate to severe three-vessel coronary calcifications. Other pulmonary findings: Classic appearance of round atelectasis is seen at the posterior left lung base. There is also chronic scarring or atelectasis at both lung bases. Other extrapulmonary findings: None. IMPRESSION: Lung-RADS ASSESSMENT CATEGORY: IVb - very suspicious. Probability of malignancy: Greater than 15%. RECOMMENDATION: Spiculated nodules in the left lower lobe against the major fissure with surrounding groundglass warrants tissue sampling or PET/CT. [facility]
== END 2019-03-01 11:31 | disposition home or self-care (01) ==
LOC: DI 11:30
PROVIDERS: ATTEND Student in an Organized Health Care Education/Training Program
DX: Z12.2 Encounter for screening for malignant neoplasm of respiratory organs (principal); J44.9 Chronic obstructive pulmonary disease, unspecified

== ENCOUNTER 2020-03-20 23:16 | Outpatient (CLI) | payer MEDICARE | END 2020-03-20 23:17 | disposition critical access hospital (66) | LOC: EMS 23:16 | PROVIDERS: ATTEND Surgery | DX: S01.81XA Laceration without foreign body of other part of head, initial encounter (principal); R41.82 Altered mental status, unspecified; W19.XXXA Unspecified fall, initial encounter; Y92.009 Unspecified place in unspecified non-institutional (private) residence as the place of occurrence of the external cause; Z79.01 Long term (current) use of anticoagulants | CPT/HCPCS: A0425; A0427 ==

== ENCOUNTER 2020-08-14 19:51 | Outpatient (CLI) | payer MEDICARE ==
--- OUTSIDE RECORDS SUMMARY | 2020-08-15 14:13 | EXTERNAL MEDICAL SUMMARY RPT | Continuity of Care Document ---
:1945 Demographics Phone Unavailable Preferred Language [place] Marital Status Unknown Scientology Affiliation Unknown Race Unknown Ethnic Group Unknown Author Organization [facility] Address [address] [phone] Phone Social History date description facility [phone]
== END 2020-08-14 19:52 | disposition left against medical advice (07) ==
LOC: EMS 19:51
PROVIDERS: ATTEND Surgery
DX: Z03.89 Encounter for observation for other suspected diseases and conditions ruled out (principal); I95.9 Hypotension, unspecified

== ENCOUNTER 2020-12-12 16:51 | Outpatient (CLI) | payer MEDICARE | END 2020-12-12 16:52 | disposition short-term general hospital (02) | LOC: EMS 16:51 | DX: I46.9 Cardiac arrest, cause unspecified (principal) | CPT/HCPCS: A0425; A0433 ==